=== PATIENT | female | born 1995 | race Caucasian/White ===

== ENCOUNTER 2019-11-24 10:56 | Day surgery (SDC) | payer OTHER ==
[2019-11-20 10:23] VITALS: BMI 27.8
[2019-11-24 11:14] VITALS: TEMP 98.5
[2019-11-24] MEDS ORDERED: LACTATED RINGERS 1,000 ML IV ONE (11:16)
[2019-11-24] MEDS ORDERED: LIDOCAINE 1% INJ 10MG/ML (20 ML MDV) ONE (12:02)
[2019-11-24] MEDS ORDERED: PROPOFOL 10 MG/ML 20 ML VIAL IV ONE (12:02)
--- NOTE | 2019-11-24 12:27 | P.PCN ---
Date of Procedure: 11/24/19 Description of Procedure: BRIEF HISTORY: Patient is a 24-year-old female presenting for outpatient EGD for evaluation of epigastric pain. Patient reports epigastric burning and pain with associated nausea. Recently had Pepcid dose increased with Carafate added. PROCEDURE PERFORMED: Esophagogastroduodenoscopy with biopsy. PREOPERATIVE DIAGNOSIS: Epigastric pain, GERD. ESTIMATED BLOOD LOSS: Minimal. IV sedation per anesthesia. PROCEDURE: After informed consent was obtained, the patient was brought into the endoscopy unit. IV sedation was administered by Anesthesia under continuous monitoring. Initially the Olympus GIF-190 video endoscope was inserted into the mouth. Esophagus intubated without any difficulty. It was gradually advanced into the stomach and duodenum and carefully examined. The bulb and the second part of the duodenum appeared normal, with biopsies taken. The scope at this time was withdrawn to the stomach, adequately insufflated with air, and upon careful examination, mucosa of the antrum, body, cardia and the fundus appeared normal, with some mild scattered erythema in the antrum body suggestive of mild gastritis with biopsies taken. The scope was then withdrawn into the esophagus. The GE junction was located at 37 cm from the incisors, biopsied. The esophagus appeared normal, with mid esophageal biopsies taken. There were no erosions or ulcerations seen and the patient tolerated the procedure well. IMPRESSION: 1. Mild gastritis, antrum and body biopsied. 2. Biopsies of the duodenum, GE junction and mid esophagus. RECOMMENDATIONS: The findings of this examination were discussed with the patient. Okay to resume diet. Continue Pepcid and Carafate therapy. Continue dietary modifications. Follow-up in GI clinic as scheduled for results of biopsies.
[2019-11-24 12:34] VITALS: RESP 18
[2019-11-24 12:56] VITALS: BP 106/79; PULSE 67
== END 2019-11-24 13:08 | disposition home or self-care (01) ==
LOC: ORWHC2ENDO 10:56
PROVIDERS: ATTEND Internal Medicine
DX: K29.50 Unspecified chronic gastritis without bleeding (principal); K21.0 Gastro-esophageal reflux disease with esophagitis; J45.909 Unspecified asthma, uncomplicated; F17.200 Nicotine dependence, unspecified, uncomplicated; F43.10 Post-traumatic stress disorder, unspecified; F41.9 Anxiety disorder, unspecified; F31.9 Bipolar disorder, unspecified; Z88.8 Allergy status to other drugs, medicaments and biological substances; Z79.899 Other long term (current) drug therapy; Z90.89 Acquired absence of other organs
CPT/HCPCS: 81025; 88305; 43239; J2001; J2704

== ENCOUNTER 2021-07-16 13:32 | Outpatient (CLI) | payer OTHER ==
[2021-07-16 15:18] VITALS: BP 115/62; PULSE 96; RESP 16; TEMP 97.8
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
== END 2021-07-16 15:15 | disposition home or self-care (01) ==
LOC: FBPOP 13:32
PROVIDERS: ATTEND Obstetrics & Gynecology
DX: O47.03 False labor before 37 completed weeks of gestation, third trimester (principal); Z3A.36 36 weeks gestation of pregnancy
CPT/HCPCS: 59025; G0463; 99213